=== PATIENT | female | born 1975 | race Caucasian/White ===

== ENCOUNTER → 2019-07-16 | Outpatient (CLI) | payer MEDICARE, OTHER ==
--- NOTE | 2019-07-17 04:24 | BD ---
EXAMINATION TYPE: Axial Bone Density DATE OF EXAM: 07/16/2019 COMPARISON: NONE CLINICAL HISTORY: 43-year-old female postmenopausal screening Height: 65 IN Weight: 124 LBS FRAX RISK QUESTIONS: Secondary Osteoporosis: 3. Menopause before 45: YES AGE 41 RISK FACTORS HISTORY OF: Active: LIMITED Postmenopausal woman: AGE 41 MEDICATIONS: Additional Medications: NONE Additional History: BREAST CANCER WITH RADIATION EXAM MEASUREMENTS: Bone mineral densitometry was performed using the [employer] System. Bone mineral density as measured about the Lumbar spine is: ----- L1-L4(G/cm2): 0.946 T Score Values are as follows: ----- L2: -1.7 ----- L3: -2.0 ----- L4: -2.2 ----- L1-L4: -2.0 Bone mineral density BASELINE Bone mineral density about the R hip (g/cm2): 0.788 Bone mineral density about the L hip (g/cm2): 0.814 T Score values are as follows: -----R Neck: -1.8 -----L Neck: -1.6 -----R Total: -1.7 -----L Total: -1.4 Bone mineral density BASELINE IMPRESSION: Osteopenia (T Score between -2.5 and -1). There is slightly increased risk of fracture and the patient may be considered for treatment. Re-Screen 2-5 years. NOTE: T-SCORE=SD OF THE YOUNG ADULT MEAN.
== END | disposition home or self-care (01) ==
LOC: EEVIPCON 15:40 → RADBDWWP 15:45
PROVIDERS: ATTEND Internal Medicine Hematology & Oncology
DX: M85.80 Other specified disorders of bone density and structure, unspecified site (principal); C50.919 Malignant neoplasm of unspecified site of unspecified female breast; Z78.0 Asymptomatic menopausal state
CPT/HCPCS: 77080

== ENCOUNTER → 2021-07-13 | Outpatient (CLI) | payer MEDICARE, OTHER ==
--- NOTE | 2021-07-13 11:39 | XR ---
EXAMINATION TYPE: XR chest 2V DATE OF EXAM: 07/13/2021 COMPARISON: NONE TECHNIQUE: PA and lateral views submitted. HISTORY: Cough FINDINGS: The lungs are clear and there is no pneumothorax, pleural effusion, or focal pneumonia. Heart size normal. No overt failure. Hyperinflation suggests COPD. IMPRESSION: 1. No acute process.
== END | disposition home or self-care (01) ==
LOC: RADXRMAIN 11:21
PROVIDERS: ATTEND Nurse Practitioner Adult Health
DX: R05.9 Cough, unspecified (principal)
CPT/HCPCS: 71046

== ENCOUNTER → 2023-11-02 | Outpatient (CLI) | payer MEDICARE, OTHER ==
--- NOTE | 2023-11-03 12:01 | NM ---
EXAMINATION TYPE: NM parathyroid w/ SPECT DATE OF EXAM: 11/02/2023 COMPARISON: NONE CLINICAL INDICATION: Female, 47 years old with history of E83.52 HYPERCALCEMIA; TECHNIQUE: Following administration of 23.9 mCi Tc99m Sestamibi. Anterior projection images of the neck and ches t were obtained 10 minutes and 3 hours post injection. SPECT images of the neck and chest were obtai kevin and reconstructed in three axes. FINDINGS: Thyroid tracer washout: Delayed images demonstrate near-complete tracer washout from the thyroid. Parathyroid uptake: None. The two-hour delayed images do not demonstrate any focal abnormal persisten t uptake in the region of the parathyroid glands to suggest parathyroid adenoma. Normal uptake: There is physiological tracer uptake in the salivary glands and thyroid gland. IMPRESSION: Normal parathyroid imaging study. No scintigraphic evidence for parathyroid adenoma in the neck or up per chest.
== END | disposition home or self-care (01) ==
LOC: RADNMMAIN 10:43
PROVIDERS: ATTEND Family Medicine
DX: E83.52 Hypercalcemia (principal)
CPT/HCPCS: 78071; A9500